=== PATIENT | male | born 1980 | race Caucasian/White ===

== ENCOUNTER 2016-09-03 22:11 | Emergency (ER) | payer SELFPAY ==
[~2016-09-03] VITALS: Ht 180.3 cm; Wt 81.6 kg
[2016-09-03 22:15] VITALS: BP_SYST 167
[2016-09-03] MEDS ORDERED: KETAMINE HCL 500 MG/10 ML VIAL IM ONE (22:15)
[2016-09-03] MEDS ORDERED: KETAMINE HCL 500 MG/10 ML VIAL ONE (22:23)
[2016-09-03] MEDS ORDERED: NS 500 ML IV ONE (23:30)
[2016-09-03] MEDS ORDERED: AMMONIA INHALANT 0.3mL AMPUL INH ONE (23:30)
[2016-09-04 00:45] VITALS: BP_SYST 135
== END 2016-09-04 00:45 ==
LOC: SED 22:11
DX: Z91.19 Patient's noncompliance with other medical treatment and regimen (principal); S80.212A Abrasion, left knee, initial encounter; S80.211A Abrasion, right knee, initial encounter; X58.XXXA Exposure to other specified factors, initial encounter; Y93.89 Activity, other specified; Y99.8 Other external cause status; Y92.89 Other specified places as the place of occurrence of the external cause
CPT/HCPCS: 70450; 72125; 72128; 72131; 96372; 99284; J7040